=== PATIENT | female | born 1950 | race Caucasian/White ===

== ENCOUNTER → 2021-09-08 13:28 | Outpatient (BNVA) | payer SELFPAY | PROVIDERS: Visit Provider Internal Medicine | DX: Z02.79 Encounter for issue of other medical certificate (principal) ==

== ENCOUNTER → 2022-09-04 14:03 | Outpatient (BNVA) | payer SELFPAY | PROVIDERS: Visit Provider Internal Medicine | DX: Z02.79 Encounter for issue of other medical certificate (principal) ==

== ENCOUNTER → 2023-08-08 11:08 | Outpatient (BNVA) | payer SELFPAY | PROVIDERS: Visit Provider Internal Medicine | DX: Z02.79 Encounter for issue of other medical certificate (principal) ==

== ENCOUNTER → 2024-07-31 13:35 | Outpatient (BNVA) | payer SELFPAY | PROVIDERS: Visit Provider Physician Assistant | DX: Z02.79 Encounter for issue of other medical certificate (principal) ==

== ENCOUNTER 2025-05-20 14:46 | Outpatient (AMB) | payer MEDICARE, SELFPAY ==
--- NOTE | 2025-05-20 14:55 | A.PHYSOV ---
Vital Signs 05/20/25 14:57 Height 5 ft 4 in Weight 170 lb BMI 29.2 Intake Visit Reasons: NPV ESPERANZA REF - LUMBAR SPONDYLOSIS (call if soon Intake Note: Patient is a 74year old female here for a new patient visit. Patient is being referred for lumbar spinal stenosis. Inventory Worker Required: No Allergies No Known Allergies Allergy (Verified 05/20/25 14:58) HPI Comments Details: Ms. King is a 74-year-old female seen in consultation today for low back pain with radiculopathy. Patient reports her symptoms are acute on chronic. She has undergone epidural injection in the past with very good relief symptoms. She reports pain level today of 7/10 primarily in the lower lumbar spine radiating into her thighs. Patient reports that her symptoms are worse with standing or in place as well as ambulation. When she sits for a period of time her symptoms markedly improved. Patient has been using Tylenol for pain. She denies any recent trauma, incontinence or saddle anesthesia. We do an MRI of the lumbar spine which does confirm compression of the right L4 nerve root as well as severe spinal canal stenosis at L3-4, L L4-5. She finds that her symptoms limiting her ability to perform her activities of daily living. I reviewed the phlebitis no prior to consultation. [facility] Surgical History (Updated 05/20/25 @ 15:01 by Josey Verdin MA) Hx of tonsillectomy (Unknown) H/O right knee surgery (Unknown) H/O tubal ligation (Unknown) Social History (Updated 05/20/25 @ 15:03 by Josey Verdin MA) Alcohol intake: current Alcohol intake frequency: does not drink Comment: not currently Patient Tobacco Use Status: Former Tobacco user Review of Systems Narrative Low back pain with radiculopathy. No incontinence, saddle anesthesia urinary retention. Physical Exam Exam Exam: Lumbar Spine: Examination of her lumbar spine, there is no visible swelling or deformity. She has tenderness to lower lumbar facets. She is otherwise nontender. Full range of motion of lumbar spine. She does have increasing pain with facet loading. Special Tests: Lhermittes sign was negative Heel Toe walk is normal Left straight leg raise: Negative Right straight leg raise: Negative Special tests De test is negative Ganslen's test is negative SI Joint compression test negative Caleb test negative Piriformis stretch is negative Lower Extremities: Full range of motion bilateral lower extremities. Pain or edema. Neuro: Sensation: Intact to lower extremities bilaterally Strength L2 (Psoas): 5/5 on the left and 5/5 on the right. L3 (Quads): 5/5 on the left and 5/5 on the right. L4 (Ant tibialis): 5/5 on the left and 5/5 on the right. L5 (EHL) 5/5 on the left and 5/5 on the right. S1 (Gastroc): 5/5 on the left and 5/5 on the right. DTR L4: (Patellar) Left 1 Right 1 S1: (Achilles) Left 1 Right 1 Babinski Downgoing No pathologic clonus. No involuntary movement. Vital Signs: BMI result Body Mass Index 29.2 Assessment & Plan Assessment & Plan (1) Radiculopathy, lumbar region: Code(s): M54.16 - Radiculopathy, lumbar region Category: Medical (2) Spondylosis: Code(s): M47.9 - Spondylosis, unspecified Category: Medical Plan Ms. Medley is a 74-year-old female seen in consultation today for chief complaint of low back pain with radiculopathy. She does have positive shopping cart sign consistent with spinal canal stenosis that is severe. She also has compression of the right L4, left L5 nerve root. She was educated about the course of her condition and treatment options. Patient has completed 6 weeks of physical therapy without relief symptoms. She finds that her symptoms former activities of daily living. She has been using Tylenol for pain. This point I recommend L5-S1 he assigns she is eager to proceed. We will obtain prior authorization for injection contact so. We discussed the benefits of proper nutrition and exercise to maintain a healthy body weight to improve longevity and function. We also discussed the benefits of proper lifting techniques, core strengthening and proper posture. Thank you for allowing me to participate in the care of your patient. Coding Level of Care Code Tele New Pt Level 3 (44593) Diagnoses Radiculopathy, lumbar region M54.16 Spondylosis M47.9
[2025-05-20 14:57] VITALS: BMI 29.2
--- OUTSIDE RECORDS SUMMARY | 2025-05-20 18:12 | XMS_ITS | Clinical Summary ---
Author Organization [facility] Address [address] [place] [address] Care Team Providers Care Pompom Maker Name Role Phone Modesto Calderon PA-C Primary Care Provider + [phone] Allergies No known active allergies Medications Medication Sig Dispensed Refills Start Date End Date Status lisinopril (PRINIVIL,ZESTRIL) tablet 5 mg Take 5 mg by mouth daily. 0 03/22/2020 Active LORazepam (ATIVAN) 0.5 MG tablet TAKE 1/2 1 TABLET BY MOUTH EVERY DAY NEEDED FOR ANXIETY OR INSOMNIA 0 03/22/2020 Active citalopram (CeleXA) 20 MG tablet TAKE 1 TABLET BY MOUTH EVERY DAY IN THE MORNING 0 06/06/2021 Active FLUoxetine (PROzac) 10 MG capsule Take 10 mg by mouth daily. 0 08/02/2021 Active losartan (COZAAR) tablet 25 mg Take 25 mg by mouth daily. 0 07/05/2021 Active gabapentin (NEURONTIN) 100 MG capsule TAKE 1-3 CAPSULES BY MOUTH AT BEDTIME 0 01/18/2022 Active Active Problems Problem Noted Date Diagnosed Date Greater trochanteric bursitis of left hip 2022 Trochanteric bursitis, right hip 04/08/2020 Family History Medical History Relation Name Comments Diabetes Father Relation Name Status Comments Father Social History Tobacco Use Types Packs/Day Years Used Date Smoking Tobacco: Never Assessed Sex and Gender Information Value Date Recorded Sex Assigned at Not on file Gender Identity Not on file Sexual Orientation Not on file Job Start Date Occupation Industry Not on file Not on file Not on file Last Filed Vital Signs Vital Sign Reading Time Taken Comments Blood Pressure - - Pulse - - Temperature - - Respiratory Rate - - Oxygen Saturation - - Inhaled Oxygen Concentration - - Weight 77.1 kg (170 lb) 04/08/2020 11:05 AM EDT Height 162.6 cm (5' 4 ) 04/08/2020 11:05 AM EDT Body Mass Index 29.18 04/08/2020 11:05 AM EDT Plan of Treatment Health Maintenance Due Date Last Done Comments Hepatitis C Screening 1950 Depression Screening 1962 Preventative Health Evaluation 1968 Colon Cancer Screening (Colonoscopy) 10/03/1995 Breast Cancer Screening (Mammogram) 2000 Shingrix-Zoster Vaccine (1 of 2) 2000 Fall Risk Assessment 10/03/2015 Osteoporosis Screening (DEXA Scan) 10/03/2015 COVID-19 Vaccine ( season) 2025 05/26/2021, 11/14/2020, 10/24/2020 Influenza Vaccine (#1) 2025 2, 05/03/2021, 05/03/2018, Additional history exists RSV Adult > 60+ Yrs or (1 - 1-dose 75+ series) 2025 DTap / Tdap / Td (2 - Td or Tdap) 11/10/2025 11/11/2015 Pneumococcal Vaccine Completed 07/22/2018, 01/03/20 16 Hepatitis B Vaccines Aged Out No long er eligible based on patient's age to complete this topic RSV Ped < 20 months Aged Out No longe r eligible based on patient's age to complete this topic Care Teams Pompom Maker Relationship Specialty Start Date End Date Modesto Calderon PA-C PCP - General Medical Services 03/07/21
--- OUTSIDE RECORDS SUMMARY | 2025-05-20 18:12 | XMS_ITS | Data Portability ---
Author Organization [place] [facility] Carissa Maier [facility] [place] Address [address] [place] [address] Care Team Providers Care Gas Welder Apprentice Name Role Phone NOE CELESTE Primary Care Provider Assessment Encounter Date Assessment Date Assessment LastModified by Organization Details LastModified Time 10/19/2022 10/19/2022 Diagnosis #1 left trochanteric bursitis. Treatment plan cortisone injection. After verbal consent was granted by the patient. The procedure was carried out on the left hip. She tolerated the procedure well aftercare instructions were discussed in detail. If her symptoms not improve or worsen she should contact my office. The patient agrees with the above-noted plan. Indirect care and treatment in conjunction with Dr. Brooks Additional treatment plan discussed with the patient in detail included the following; - Provider focused nonsteroidal anti-inflammator y regimen (discussed were the pros, cons, benefits and risks as well as any black box warnings) - Analgesic pain medication for pain suppression (discussed were the pros, cons, benefits and risks as well as any black box warnings) - The use of topical pain relieving medication were discussed - The use of ice to decrease inflammation and pain - The use of assistive ambulatory devices for ambulation and fall prevention - Formal specific guided physical therapy program I reviewed my findings at length with the patient today. We discussed the nature and etiology of this problem along with current treatment options. We discussed the expected course and outcomes and what to expect. We also discussed risks and benefits. All of their questions were answered today, and there was exhibited understanding and comprehension of all that was discussed. 10 minutes were spent reviewing previous imaging and charting. 10 minutes were spent obtaining patient history. 5 minutes were spent on physical exam. 5minutes were spent explaining diagnosis and assessment. Today's documentation was made using voice recognition software. This note may contain grammatical errors secondary to the software. Not available 10/19/2022 14:25:17 11/13/2022 11/13/2022 Diagnosis right shoulder glenohumeral arthritis, AC joint arthritis, impingement syndrome. I had a discussion with the patient her management. She is not interested in physical therapy however she is taking htyn-jrq-ruxemol pain medication which gives her mild symptomatic relief. She did opt for cortisone injection within the right glenohumeral joint at today's visit. After verbal consent was obtained. The procedure was carried out on the right shoulder and the posterior approach. Patient tolerated the procedure well aftercare instructions were discussed in detail. She is improving regarding her left shoulder she will keep an eye on this if this does not continue to improve she will contact my office we will get her back in for which we will evaluate further. We will also need to obtain x-rays since this information was obtained after rooming. Indirect care and treatment in conjunction with Dr. Brooks. Additional treatment plan discussed with the patient in detail included the following; - Provider focused nonsteroidal anti-inflammator y regimen (discussed were the pros, cons, benefits and risks as well as any black box warnings) in patients over 60 years old they should be very cautious in taking these medications due to potential decreased kidney function and or elevated blood pressure. - Analgesic pain medication for pain suppression (discussed were the pros, cons, benefits and risks as well as any black box warnings) - The use of topical pain relieving medication were discussed - The use of ice to decrease inflammation and pain - The use of assistive ambulatory devices for ambulation and fall prevention - Formal specific guided physical therapy program I reviewed my findings at length with the patient today. We discussed the nature and etiology of this problem along with current treatment options. We discussed the expected course and outcomes and what to expect. We also discussed risks and benefits. All of their questions were answered today, and there was exhibited understanding and comprehension of all that was discussed. 10 minutes were spent reviewing previous imaging and charting. 10 minutes were spent obtaining patient history. 5 minutes were spent on physical exam. 5minutes were spent explaining diagnosis and assessment. Today's documentation was made using voice recognition software. This note may contain grammatical errors secondary to the software. [email or web address] Not available 11/14/2022 10:16:13 06/11/2023 06/11/2023 We discussed today her diagnosis of left -sided insertional Achilles tendinitis. We discussed nonoperative management including wearing a boot, tendon rest, anti-inflammator ies, physical therapy, stretching, treatments like EPAT, dry needling, or laser treatments, and ultimately surgical intervention. I recommend a wedge heel lift for tendon relief as well as a short course of meloxicam. I will have her return to the office in about 3 weeks for repeat assessment. We will plan to initiate physical therapy at that time. Of note she did not wish to use a boot immobilizer today. [email or web address] Not available 06/11/2023 15:29:25 Plan of Treatment Reminders Order Date Submit Date Provider Last Modified By Organization Details Last Modified Time Details Appointments None recorded. Lab None recorded. Referral None recorded. Procedures None recorded. Surgeries None recorded. Imaging XR, foot, 3 or more view 2022 023 [email or web address] [facility], [address], [place], [address], 3 16:12:31 XR, shoulder, 2 or more view 2022 023 [facility], [address], [place], [address], 3 15:59:16 Medication Orders meloxicam 15 mg tablet 2022 023 [id number], [address] [place] [address], [address], 3 15:04:39 Kenalog 40 mg/mL suspension for injection [id number], [address] [place], [address], 3 14:48:56 lidocaine (PF) 100 mg/5 mL (2 %) injection syringe [id number], [address] [place], [address], 14:49:01 Kenalog 40 mg/mL suspension for injection 2022 023 [id number] [place], [address], 14:48:56 lidocaine (PF) 10 mg/mL (1 %) injection solution 2022 023 [address] [address] [place], [address], 14:48:59 Patient TargetsNo targets recorded. Patient Instructions Encounter Date Encounter Id Patient Instructions Last Modified By Organization Details Last Modified Time 10/19/2022 [id number] You have been provided with a cortisone injection in order to reduce the pain and inflammation that you are experiencing. The injection consists of two medications. Cortisone (an anti-inflammatory that will take 48-72 hours to take effect) and Lidocaine (a numbing agent that will last 2-3 hours). Please note that not everyone will have a lasting response following the injection. PATIENT INSTRUCTIONS Once the Lidocaine wears off, you may have an increase in your pain. I recommend icing the affected area for 20 minutes 3-4 times per day. It is recommended that you refrain from any high level activities using the joint or limb that was injected for approximately 24-48 hours. Normal day-to-day activities are generally not a problem. POSSIBLE SIDE EFFECTS Individuals with dark complexions may experience some skin discoloration locally at the site of the injection. There is the possibility of an increase in discomfort within 48 hours following the injection. This is called a amado rajput . To help minimize the chances of this, please see the post-injection instructions above. There is a less than 1% chance of an infection. If you notice any signs of infection (redness, warmth, drainage, fever greater than 100 degrees) please call our office or contact us through the portal [email or web address]. Not available 10/19/2022 14:25:29 11/13/2022 [id number] You have been provided with a cortisone injection in order to reduce the pain and inflammation that you are experiencing. The injection consists of two medications. Cortisone (an anti-inflammatory that will take 48-72 hours to take effect) and Lidocaine (a numbing agent that will last 2-3 hours). Please note that not everyone will have a lasting response following the injection. PATIENT INSTRUCTIONS Once the Lidocaine wears off, you may have an increase in your pain. I recommend icing the affected area for 20 minutes 3-4 times per day. It is recommended that you refrain from any high level activities using the joint or limb that was injected for approximately 24-48 hours. Normal day-to-day activities are generally not a problem. POSSIBLE SIDE EFFECTS Individuals with dark complexions may experience some skin discoloration locally at the site of the injection. There is the possibility of an increase in discomfort within 48 hours following the injection. This is called vandana rajput . To help minimize the chances of this, please see the post-injection instructions above. There is a less than 1% chance of an infection. If you notice any signs of infection (redness, warmth, drainage, fever greater than 100 degrees) please call our office or contact us through the portal [email or web address]. Not available 11/14/2022 10:17:21 Right shoulder x-ray Grashey, AP and Y view reveal severe glenohumeral arthritis with large inferior osteophyte, calcification just superior to the greater tuberosity, AC joint space narrowing, type II acromion without acute bony abnormality. Not available 11/14/2022 10:21:01 Reason for Referral None Reported. Results Created Date Observation Date Name Description Value Unit Range Abnormal Flag Note LastModifiedBy Organization Detail LastModifiedTime 06/12/20 23 US, rachel x, ely s, lower extre mity No observ ation record ed. [email or web address] Not Available 11/2022 16:29:29 Result Notes None recorded. Problems Name Problem SNOMED Code Status Onset Date Resolution Date Notes Provider Name and Address Organization Details Recorded Time Trochante francisco javier bursitis of right hip 58101039040 9100 Active 2019 Trochante francisco javier bursitis, right hip Not Available [facility] 00:33:56 Greater trochante francisco javier pain syndrome 0628313 Active 2022 Greater trochante francisco javier bursitis of left hip Not Available [facility] 5 00:33:57 Trochante francisco javier bursitis of left hip 55289587512 9103 Active 2022 FLORENCIO HAIR PA-C [address], [place], [address] , [place] [facility] 3 14:25:22 Osteoarth ritis of right glenohume ral joint 89384407086 70308 Active 2022 FLORENCIO HAIR PA-C [address], [place], [address] , [place] [facility] 3 14:27:07 Osteoarth ritis of right acromiocl avicular joint 67288429310 91032 Active 2022 FLORENCIO HAIR PA-C [address], [place], [address] , [place] [facility] 3 14:27:16 Impingeme nt syndrome of right shoulder region 25011970578 9102 Active 2022 FLORENCIO HAIR PA-C [address], [place], [address] , [place] [facility] 3 14:27:23 Left Achilles tendiniti s 86262131845 9102 Active 2022 ADALI SALGADO PA-C [address], [place], [address] , [place] [facility] 3 15:04:23 Problem Notes None recorded. Procedures Surgical History Date Name Laterality Status Provider Name and Address Organization Details Recorded Time 11/14/19 23 Shoulder Joint/Bursa Asp & Inj completed FLORENCIO HAIR PA-C [address], [place], [address], [place] [facility] 11/13/2022 14:23:16 10/20/19 23 BLW Hip Trochanteric Injection completed FLORENCIO HAIR PA-C [address], [place], [address], [place] [facility] 10/19/2022 14:24:47 Knee Surgery completed Lisa Bradley [place] [facility] 10/19/2022 13:40:06 Imaging Results None recorded. Procedure Notes None recorded. Medical Equipment None Reported. Allergies No known drug allergies Medications Name Sig Start Date Stop Date Status Note LastModified by Organization Details LastModified Time amoxicillin 500 mg capsule TAKE 1 CAPSULE BY MOUTH EVERY 8 HOURS UNTIL FINISHED 06/11 completed Not Available Not Available Not Available trazodone 50 mg tablet TAKE 1 TABLET BY MOUTH AT NIGHT FOR SLEEP CAN USE TWO NEEDED 06/11 completed Not Available Not Available Not Available meloxicam 15 mg tablet TAKE 1 TABLET BY MOUTH EVERY DAY active Not Available Not Available No t Available Kenalog 40 mg/mL suspension for injection Take 1 mL by injection route. 06/11 completed Not Available Not Available Not Available citalopram 20 mg tablet TAKE 1 TABLET BY MOUTH EVERY DAY IN THE MORNING 2020 active Not Available Not Available Not Avai lable lorazepam 0.5 mg tablet TAKE 1/2 TO 1 TABLET BY MOUTH EVERY DAY NEEDED FOR ANXIETY active Not Available Not Available No t Available meclizine 25 mg tablet TAKE 1 TABLET BY MOUTH 3 TIMES A DAY NEEDED FOR DIZZINESS 06/11 completed Not Available Not Available Not Available methylpredn isolone acetate 40 mg/mL suspension for injection 04/08 completed Not Available Not Available Not Available losartan 25 mg tablet TAKE 1 TABLET BY MOUTH EVERY DAY active Not Available Not Available No t Available fluoxetine 10 mg capsule Take 10 mg by mouth daily. 2021 active Not Available Not Available Not Avai lable gabapentin 300 mg capsule TAKE 1 CAPSULE BY MOUTH EVERYDAY AT BEDTIME active Not Available Not Available No t Available sertraline 25 mg tablet TAKE 1 TABLET BY MOUTH DAILY FOR 2 WEEKS, THEN INCREASE TO 2 TABLETS DAILY active Not Available Not Available No t Available lisinopril 5 mg tablet Take 5 mg by mouth daily. 2019 active Not Available Not Available Not Avai lable gabapentin 100 mg capsule TAKE 1 TO 3 CAPSULES BY MOUTH AT BEDTIME active Not Available Not Available No t Available cefdinir 300 mg capsule TAKE 1 CAPSULE BY MOUTH TWICE A DAY active Not Available Not Available No t Available sertraline 50 mg tablet TAKE 1 TABLET BY MOUTH EVERY DAY active Not Available Not Available No t Available amoxicillin 875 mg-potrodrick m clavulanate 125 mg tablet TAKE 1 TABLET BY MOUTH TWICE A DAY FOR 7 DAYS 06/11 completed Not Available Not Available Not Available azithromyci n 500 mg tablet TAKE 1 TABLET BY MOUTH DAILY 06/11 completed Not Available Not Available Not Available nitrofurant oin monohydrate /macrocryst als 100 mg capsule TAKE 1 CAPSULE BY MOUTH TWICE A DAY FOR 5 DAYS active Not Available Not Available No t Available lidocaine (PF) 10 mg/mL (1 %) injection solution Take 1 mL by injection route. 06/11 completed Not Available Not Available Not Available desvenlafax ine succinate ER 50 mg tablet,exte nded release 24 hr TAKE 1 TABLET BY MOUTH DAILY active Not Available Not Available No t Available lidocaine (PF) 100 mg/5 mL (2 %) injection syringe Take 2 mL by injection route. 06/11 completed Not Available Not Available Not Available desvenlafax ine succinate ER 25 mg tablet,exte nded release 24 hr TAKE 1 TABLET BY MOUTH DAILY active Not Available Not Available No t Available Flowflex COVID-19 Antigen Home Test kit REFER TO [employer] [place] INCLUDED IN PACKAGING 06/11 completed Not Available Not Available Not Available Vitals Date Recorded Body height Body mass index (BMI) Body weight Provider Name and Address Organization Details Last Updated DateTime 06/11/2023 162.56 cm 29.2 kg/m2 [address]014[address] [place] [facility], 06/11/2023 14:49:27 Social History None recorded. Functional Status Question Answer Note LastModified by Organization D etails LastModified Time What is your level of alcohol consumption? None [email or web address] Information not available 06/11/2023 Mental Status None recorded. Family History Relationship Description Onset Age of this Age Resolved Age Notes LastModified by Organization Details LastModified Time Father Diabetes mellitus [email or web address] Not available 2022 13:39:54 Medical History Condition Response Cancer Y Anemia Y Osteopenia Y Hypertension Y COPD Y Gynecological HistoryNo gynecological history recorded. Obstetrics History GPAL:G 0 P 0 0 0 0 Past Encounters Encounter ID Performer Location Encounter Start Date Encounter Closed Date Diagnosis/Indication Diagnosis SNOMED-CT Code Diagnosis ICD10 Code Diagnosis IMO Codes Diagnosis Note [id number] JENNIFER PEACOCK [facility] [facility] [address] [place] [address] 10/19/2022 13:33:17 10/19/2022 13:58:38 Trochanteric bursitis of left hip 5685377250 58795 M70.62 [id number] [facility] [address] [facility] [address] [place] [address] 11/13/2022 13:05:21 11/13/2022 14:17:41 Pain of right shoulder joint 1470075162 3701928 M25.511 Osteoarthr itis of right glenohumeral joint 3633658689 326929 M19.011 Osteoarthr itis of right acromioclavicular joint 6258234489 562642 M19.011 Impingemen t syndrome of right shoulder region 2356667815 58818 M75.41 [id number] JENNIFER LAUREN [address] [facility] [place] [address] 06/11/2023 14:18:26 06/11/2023 15:11:16 Pain in left foot 5450076343 25809 M79.672 Left Achil les tendinitis 7331300941 88358 M76.62 Health Concerns Section Related Observation LastModified by Organization Detai ls LastModified Time None Recorded Concern Status LastModified by Organization Details LastModified Time None Recorded Advance Directives Directive None Recorded Payers Insurance Date Sequence Insurance Name Policy Number Policy Mathew Covered Member ID Mathew Member ID Guarantor Name 05/10/2023 1 [facility] (MEDICARE REPLACEMENT/A DVANTAGE - HMO) [id number] Mary Hart [id number] Mary Hart Notes Date Note Type Note Provider Name and Address Organization Details Recorded Time 10/19/2022 text/html This is a pleasant 72-year-old female last seen on 07/20/2022 had cortisone injection in her left trochanteric bursa. She states this gave her good relief. She is now starting to have return of symptoms which wake her up at night. She denies any other complaints at this time. Here for possible cortisone injection. FLORENCIO HAIR PA-C [address] [facility] [address], [place], [address], [place] [facility] 10/19/2022 14:26:42 11/13/2022 text/html ROS as noted in the HPI PRIOR BK:This is a pleasant 71-year-old female agbtk-obvp-snhknhsk comes in with ongoing chronic right shoulder pain this week getting progressively worse for a number years. She denies neck symptoms or paresthesias.She denies any trauma. She was told that she has bone spurs . She was referred by her primary care for which they ordered x-rays which reveal the following;Right shoulder x-ray 4 views reveals AC joint arthritis, type II acromion, calcific tendinitis, grade 4 tbhw-zs-rjza glenohumeral arthritis without acute bony abnormality. Formal x-ray report by radiologist not available patient did not bring with her. HPI:This is a pleasant 72-year-old female here for evaluation of chronic right shoulder pain has been getting progressively worse over the last 2 years. She states certain range of motion exercises cause her discomfort for which mostly is at night when she sleeps. She denies any weakness denies neck symptoms or paresthesias.She recently had a fall for which she lost 5 teeth that she was seen here at [facility] on October 31, 2022. She is being followed by her dentist regarding this issue. She also states she has some bruising in her left shoulder however this has been getting better as far as discomfort she denies any weakness paresthesias or pain. FLORENCIO HAIR PA-C [address] [facility] [address], [place], [address], [place] [facility] 11/14/2022 10:21:11 06/11/2023 text/html Mary is a 72-year-old female who presents to the office today for evaluation regarding her left ankle. She began having pain in her Achilles tendon a couple of months ago with no known injury. Her pain has become quite severe and scheduled an appointment with our office in hopes that she would have a cortisone injection. Her pain is a 9/10 on average and localized to the distal Achilles tendon. She has visible swelling and radiating pain intermittently into her calf. She has been taking ibuprofen 800 mg otherwise no prior treatments. Past medical history significant for anemia which is stable, skin cancer of the face, COPD, hypertension controlled with oral medications, Lyme disease and osteopenia. She works part-time driving a shuttle bus. She does not smoke. She does not drink alcohol. Veronica Barger MD [address], [place], [address], [place] [facility] 06/13/2023 21:38:59 OBGyn Episode No OBEpisode recorded.
--- OUTSIDE RECORDS SUMMARY | 2025-05-20 18:13 | XMS_ITS | Patient Health Record ---
Author Organization [facility] Address [address] [place] [address] Care Team Providers Care Recreation Director Name Role Phone Aashish Corrae Unavailable [phone] Reason For Referral No Information Medications Medication SIG (Take, Route, Frequency, Duration) Notes Start Date End Date Status Fish Oil Active simvastatin Active CeleXA Active multivitamin Active meloxicam Active Problems Problem Type SNOMED Code ICD Code Onset Dates Problem Status W/U Status Risk Notes Problem Anxiety (35963166) Anxiety (F41.9) Active confi rmed Problem Hypercholesterolemia (75654711) Hypercholesterolemia (E78.00) Active confirmed Plan Of Treatment No Information Insurance Providers Payer Name Payer Address Payer Phone Subscriber Number Group Number Insured Name Patient Relationship to Insured Coverage Start Date Coverage End Date [facility] /Medicare Complete [address] [address] [place] [address] [id number] Mary Dixon Self - patient is the insured Medicare [address] [address] [place] [address] [phone] [id number] Mary Dixon Self - patient is the insured Medical (General) History Medical History History ICD Code Anxiety F41.9 Hypercholesterolemia E78.00 Surgical History Surgery Date(Month/Year) Orthopedic Surgery Torn meniscus- left knee 2012 Tonsillectomy 1952 Tubal Ligation 1976
== END 2025-05-20 15:24 | disposition home or self-care (01) ==
LOC: HO.HPHYS 14:46
PROVIDERS: PCP Internal Medicine; Visit Provider Physician Assistant
DX: M54.16 Radiculopathy, lumbar region (principal); M47.9 Spondylosis, unspecified
CPT/HCPCS: 99213

== ENCOUNTER → 2025-05-20 14:46 | Outpatient (BNVA) | payer MEDICARE, SELFPAY | PROVIDERS: PCP Internal Medicine; Visit Provider Physician Assistant | DX: M54.16 Radiculopathy, lumbar region (principal); M47.9 Spondylosis, unspecified | CPT/HCPCS: 99212 ==